=== PATIENT | female | born 2000 | race African-American/Black ===

== ENCOUNTER 2021-06-17 14:31 | Emergency (ER) | payer OTHER, BC | END 2021-06-17 18:10 | disposition home or self-care (01) | LOC: CSHERS 14:31 | DX: T23.261A Burn of second degree of back of right hand, initial encounter (principal); M54.9 Dorsalgia, unspecified; V89.2XXA Person injured in unspecified motor-vehicle accident, traffic, initial encounter; W22.10XA Striking against or struck by unspecified automobile airbag, initial encounter; Z87.898 Personal history of other specified conditions | CPT/HCPCS: 99283 ==

== ENCOUNTER 2021-12-21 07:32 | Emergency (ER) | payer BC, SELFPAY ==
[2021-12-21 08:09] LABS: Bilirubin Neg (Negative); Blood, Urine Negative (Negative); Clarity Clear (Clear); Glucose, Urine (Dipstick) Normal (Negative); Ketone, Urine Negative (Negative); Leukocyte Negative (Negative); Nitrite Negative (Negative); Protein, Urine (Dipstick) Negative (Neg-Trace); Urobilinogen Normal mg/dL (Less than 2)
[2021-12-21] MEDS ORDERED: traMADol HCl 50 MG TAB ONE (08:38)
== END 2021-12-21 08:47 | disposition home or self-care (01) ==
LOC: CSHERS 07:32
DX: N73.9 Female pelvic inflammatory disease, unspecified (principal)
CPT/HCPCS: 81003; 99284

== ENCOUNTER 2023-07-12 14:12 | Emergency (ER) | payer BC ==
[2023-07-12 15:38] LABS: SARS-CoV-2 NAA Rapid Test Not Detected (NotDetected)
== END 2023-07-12 16:00 | disposition home or self-care (01) ==
LOC: CSHERS 14:12
DX: B34.9 Viral infection, unspecified (principal); Z20.822 Contact with and (suspected) exposure to COVID-19
CPT/HCPCS: 87081; 87430; 99283

== ENCOUNTER 2023-08-27 17:05 | Emergency (ER) | payer BC ==
[2023-08-27] MEDS ORDERED: Ibuprofen 200 MG TAB ONE (18:44)
[2023-08-27 18:57] LABS: SARS-CoV-2 NAA Rapid Test Not Detected (NotDetected)
== END 2023-08-27 19:18 | disposition home or self-care (01) ==
LOC: CSHERS 17:05
DX: R53.81 Other malaise (principal); J02.9 Acute pharyngitis, unspecified
CPT/HCPCS: 99284

== ENCOUNTER 2023-09-06 14:25 | Emergency (ER) | payer BC ==
[2023-09-06] MEDS ORDERED: Bacitracin 1 PK ONE (15:40)
== END 2023-09-06 16:20 | disposition home or self-care (01) ==
LOC: CSHERS 14:25
DX: S61.411A Laceration without foreign body of right hand, initial encounter (principal); W25.XXXA Contact with sharp glass, initial encounter